=== PATIENT | male | born 1965 | race Caucasian/White ===

== ENCOUNTER → 2024-06-21 | Outpatient (CLI) | payer OTHER ==
[2024-06-21 14:56] LABS: ALBUMIN 3.6 G/DL (3.2-5.2); BILIRUBIN,TOTAL 0.7 MG/DL (0.3-1.2); CALCIUM LEVEL 8.8 MG/DL (8.5-10.1); GLOMERULAR FILTRATION RATE 87.2 (>56); POTASSIUM SERUM 4.2 MMOL/L (3.5-5.1)
== END ==
LOC: M LAB 13:40
PROVIDERS: ATTEND Dermatology
DX: C44.311 Basal cell carcinoma of skin of nose (principal)

== ENCOUNTER → 2024-07-04 | Outpatient (CLI) | payer OTHER ==
[~2024-07-04] MED LIST: ISOVUE-370 76% 100ML VIAL As Ordered ONE
== END ==
LOC: M RAD 13:38
PROVIDERS: ATTEND Dermatology
DX: C44.311 Basal cell carcinoma of skin of nose (principal)
CPT/HCPCS: 70470; 70491; Q9967

== ENCOUNTER → 2024-07-06 | Outpatient (CLI) | payer OTHER ==
[~2024-07-06] MED LIST changes: +ALBU8.5H INH; +ATOR1TAB21 PO; +CYAN100049 PO; +DULO1CAP6 PO; +HYDR-3490 PO; -ISOVUE-370 76% 100ML VIAL As Ordered ONE; +LISI40TA4 PO; +PRAM0.5T4 PO
== END ==
LOC: M ONCR 13:24
PROVIDERS: ATTEND General Practice
DX: C44.319 Basal cell carcinoma of skin of other parts of face (principal); Z98.890 Other specified postprocedural states; F17.210 Nicotine dependence, cigarettes, uncomplicated; Z79.899 Other long term (current) drug therapy

== ENCOUNTER 2024-08-16 09:42 | Outpatient (RCR) | payer OTHER ==
[~2024-08-16 09:42] MED LIST changes: +LIDO15SO8 PO; +LISI40TA10 PO; -LISI40TA4 PO
== END 2024-09-04 ==
LOC: M ONCR 09:42
PROVIDERS: ATTEND General Practice
DX: Z51.0 Encounter for antineoplastic radiation therapy (principal); C44.310 Basal cell carcinoma of skin of unspecified parts of face

== ENCOUNTER → 2024-09-15 | Outpatient (CLI) | payer OTHER | LOC: M ONCR 10:33 | PROVIDERS: ATTEND General Practice | DX: L81.4 Other melanin hyperpigmentation (principal); Z92.3 Personal history of irradiation ==